=== PATIENT | male | born 1970 | race Hispanic/Latino ===

== ENCOUNTER 2022-03-23 17:46 | Emergency (ER) | payer OTHER ==
[~2022-03-23] VITALS: Ht 177.8 cm; Wt 83.9 kg
[2022-03-23 17:52] VITALS: BP 111/77
[2022-03-23] MEDS ORDERED: HYDR25SU38 RC (18:12)
== END 2022-03-23 18:24 | disposition home or self-care (01) ==
LOC: EDH 17:46
DX: K64.9 Unspecified hemorrhoids (principal); F41.9 Anxiety disorder, unspecified; E11.9 Type 2 diabetes mellitus without complications

== ENCOUNTER 2024-11-21 19:56 | Emergency (ER) | payer BC ==
[~2024-11-21] VITALS: Ht 177.8 cm; Wt 85.3 kg
[~2024-11-21 19:56] MED LIST: HYDR25SU38 RC
[2024-11-21 19:59] VITALS: BP 138/84; PULSE 69; RESP 20; TEMP 97.9
[2024-11-21] MEDS ORDERED: GABA-529 PO (21:09)
--- NOTE | 2024-11-21 21:10 | ERN ---
ED Note History of Present Illness Stated Complaint: BURNING/STINGING TO SKIN IN UPPER BACK,RIB AREA Chief Complaint: Other Problems Time Seen by MD: 20:00 Time Seen by Midlevel: 20:03 Dictation: 54-year-old male coming in with complaints of burning and stinging 10 station to the right scapular area radiating to the right underarm. Patient states this has been going on intermittently for the last three months. States he has been to the PCP and they gave him muscle relaxers. Allergies: Coded Allergies: No Known Allergies (Unverified Allergy, Unknown, 03/23/22) Home Meds Active Scripts Hydrocortisone Acetate (Anusol-Hc) 25 Mg Supp.rect, 25 MG RC BID, #20 EA Prov:AMERICA TROTTER 03/23/22 Past Medical History Past Medical History: Diabetes-Type II Surgical History: None Family History: Negative Social History: Negative Review of System Dictation Constitutional: Negative for fever,chills, and weight loss Eyes: Negative for injury, pain,redness, and discharge ENT: Negative for injury,pain or swelling Cardiovascular: Negative for chest pain, palpitations, and edema Respiratory: Negative for shortness of breath, cough, and wheezing, Abdomen/GI: Negative for abdominal pain, nausea, vomiting, diarrhea, and constipation Back: Negative for injury and pain : Negative for injury, bleeding and discharge MS/Extremity: Negative for injury and deformity Skin: Negative for rash, and discoloration, pain to the right scapular area radiating to the right underarm Neuro: Negative for headache, weakness, numbness, tingling, and seizure Psych: Negative for suicide ideation, homicidal ideation, and hallucinations Review of Systems: was completed Initial Vital Sign VS Vital Signs Date Time Temp Pulse Resp B/P (MAP) Pulse Ox O2 Delivery O2 Flow Rate FiO2 11/21/24 19:59 97.9 69 20 138/84 98 Room Air Physical Exam Dictation General: awake, alert, NAD Head/Face: Normocephalic, atraumatic Eyes: PERRL, EOMI, vision at baseline ENT: oral cavity clear, TMs clear, no signs of infection Neck: Trachea midline, supple, no nuchal rigidity Cardiovascular: RRR, normal S1/S2, No MRGs, no JVD Respiratory: CTAB, no respiratory distress, No rales or wheezes Abdomen: Soft, non-tender, non-distended, normal bowel sounds, no guarding or rebound. Skin: Warm, dry, normal turgor, no rash MS/Extremity: Pulses equal, no cyanosis, neurovascular intact, FROM Neuro: COAx4, GCS 15, strength 5/5, CN 2-12 intact, normal cerebellar exam, normal gait, Psych: Normal behavior, mood, and affect normal ED Course ED Course Vital Signs Date Time Temp Pulse Resp B/P (MAP) Pulse Ox O2 Delivery O2 Flow Rate FiO2 11/21/24 19:59 97.9 69 20 138/84 98 Room Air Medical Decision Making MDM MDM: 54-year-old male coming in with complaints of burning and stinging 10 station to the right scapular area radiating to the right underarm. Patient states this has been going on intermittently for the last three months. States he has been to the PCP and they gave him muscle relaxers. Discussed with the patient was this could be possibly neuralgia since started no evidence of shingles. We will give patient pain medication in the ER and discharge him with gabapentin. Discussed with the patient needs to follow up with PCP and or with reprint sorter. Patient verbalized understanding, answered all questions. Differential diagnosis: Shingles, neuralgia, muscle spasm Rationale: Tests considered and ordered secondary to shared decision making include: Previous outside records reviewed: Old ER visits. Risk of complication and/or morbidity or mortality of patient management: None Medications-Per medication reconciliation Need for hospitalization: Patient does not meet criteria for hospitalization. Need for emergency major/minor surgery: No There are no social concerns with this patient. Prescription drug management Prescriptions will include symptomatic care Patient's prior external medical records from other ER visits were reviewed by me as indicated. Prior testing and results from previous visits were reviewed. Prior tests were taken into account with medical decision making and resource utilization, independent historian/historians were used to obtain complete medical history. I independently interpreted the test that were performed, results were reviewed by me and considered findings on radiology if ordered. Medical management and examination interpretation discussions were had by me with other qualified healthcare professionals as indicated for the patient's care. DX & DISP Disposition: Discharge Departure Impression: Primary Impression: Neuralgia Condition: Stable Scripts Gabapentin (Gabapentin) 100 Mg Capsule 2 CAP PO TID for 30 Days, #90 CAP 0 Refills Prov: TANO RAMIREZ [employer] ADJUSTER SUPERVISOR 11/21/24 Additional Instructions: Medication as prescribed for pain. Follow up with PCP. Return to the hospital if any worsening symptoms. Referrals: SELF,REFERRAL (PCP) Time of Disposition: 21:09 I have reviewed the case, and I agree with, Diagnosis and Plan TANO RAMIREZ NP Nov 21, 2024 21:10
[2024-11-21] MEDS: dexaMETHasone SOD PHOSPHATE 4 MG/ML 1ML VIAL IM STA (21:49)
[2024-11-21] MEDS: GABAPENTIN 300 MG CAPSULE PO STA (21:49)
== END 2024-11-21 22:02 | disposition home or self-care (01) ==
LOC: EDH 19:56
DX: M79.2 Neuralgia and neuritis, unspecified (principal); E11.9 Type 2 diabetes mellitus without complications
CPT/HCPCS: 99284; 96372; J1100